=== PATIENT | male | born 1960 | race Caucasian/White ===

== ENCOUNTER 2017-06-26 19:31 | Emergency (ER) | payer OTHER ==
[~2017-06-26 19:31] MED LIST: COZAAR 50MG TAB50 MG PO; DOXAZOSIN MESYLA1 MG PO; ELIQUIS5 MG PO; FISH OIL500 MG PO; LOPRESSOR 25MG25 MG PO; LOSARTAN POTASS25 MG PO; MAGNESIUM OXID400 MG PO; MAGNESIUM OXIDE PO; METOPROLOL SUCC25 MG PO; OMEPRAZOLE40 MG PO; POLYTRIM O200 GTT/BO OPH; PREVACID15 MG PO; VITAMIN D1000 IU PO
--- NOTE | 2017-06-26 19:41 | ED INFLUENZA/URI COMPLAINT ---
History of Present Illness General Chief Complaint: General Adult Stated Complaint: "SORE THROAT, PAINFULL COUGH, SOB, 102.0 TEMP" Source: patient, old records Exam Limitations: no limitations Vital Signs & Intake/Output Vital Signs & Intake/Output Vital Signs Date Time Temp Pulse Resp B/P B/P Pulse O2 O2 Flow FiO2 Mean Ox Delivery Rate 06/27 1935 99.0 120 24 156/82 90 Allergies Coded Allergies: NO KNOWN ALLERGIES (05/17/15) Reconcile Medications Apixaban (Eliquis) 5 MG TABLET 5 MG PO 0800,1999 blood thinner Cholecalciferol (Vitamin D3) (Unknown Strength) TABLET (Unknown Dose) PO DAILY SUPPLEMENT (Reported) Doxazosin Mesylate 1 MG TAB 1 MG PO DAILY HEART (Reported) Lansoprazole (Prevacid) 15 MG ECC 1 TAB PO DAILY GI (Reported) Losartan (Cozaar) 50 MG TAB 50 MG PO DAILY heart Magnesium Oxide 400 MG TABLET 250 MG PO DAILY SUPPLEMENT (Reported) Metoprolol Tartrate (Lopressor) 25 MG TABLET 25 MG PO BID heart Polytrim (Polytrim Eye Drops) 200 GTT/BOT GTT 1 DROP OPH 4 TIMES/DAY CONJUNCITIVITS SALMON OIL/OMEGA-3 FATTY ACIDS (Fish Oil 500 MG Softgel) 500 MG-100 MG CAPSULE 500 MG PO BID SUPPLEMENT (Reported) Triage Note: per pt fever and brown sputum cough and fever since yesterday hx of lymphoma 2010, went to urgent care sent to ed. Triage Nurses Notes Reviewed? yes HPI: 56M PMH HTN, B-cell lymphoma in 2010 currently in remission presenting with 2 days of fever, diaphoresis, productive cough with brown sputum, decreased appetite, sore throat, and malaise. Denies stiff neck, sinus congestion, chest pain, abdominal pain, diarrhea, dysuria. Reports lower chest pain with deep cough. Sick contacts are both his sons, aged 13 and 20, with similar symptoms. No recent travel. Past History Travel History Traveled to [place] past 21 day No Medical History Any Pertinent Medical History? see below for history Neurological: NONE EENT: NONE Cardiovascular: hypertension Respiratory: NONE Gastrointestinal: NONE Hepatic: NONE Renal: NONE Musculoskeletal: NONE Psychiatric: NONE Endocrine: NONE Blood Disorders: NONE Cancer(s): LYMPHOMA DISABILITY REPRESENTATIVE/Reproductive: NONE History of MRSA: No History of VRE: No History of CDIFF: No Surgical History Surgical History: non-contributory Psychosocial History Who do you live with Family What is your primary language Andorran Tobacco Use: Never used Family History Hx Contributory? No Review of Systems Review of Systems Constitutional: Reports: no symptoms. EENTM: Reports: no symptoms. Respiratory: Reports: no symptoms. Cardiovascular: Reports: no symptoms. GI: Reports: no symptoms. Genitourinary: Reports: no symptoms. Musculoskeletal: Reports: no symptoms. Skin: Reports: no symptoms. Neurological/Psychological: Reports: no symptoms. Hematologic/Endocrine: Reports: no symptoms. Immunologic/Allergic: Reports: no symptoms. All Other Systems: Reviewed and Negative Physical Exam Physical Exam General Appearance: well developed/nourished, no apparent distress Head: atraumatic, normal appearance Eyes: Bilateral: normal appearance. Ears, Nose, Throat: moist mucous membrane, hearing grossly normal Neck: normal inspection, supple Respiratory: bilateral rhonchi Cardiovascular: regular rate/rhythm Gastrointestinal: soft, non-tender Back: normal inspection, normal range of motion Extremities: normal inspection, normal range of motion Neurologic/Psych: awake, alert, oriented x 3, normal mood/affect Skin: intact, normal color, warm/dry Core Measures Sepsis Present: No Sepsis Focused Exam Completed? No Progress Differential Diagnosis: influenza, meningitis, neutropenia, otitis, pneumonia, pharyngitis, sinusitis Plan of Care: Orders Procedure Date/time Status RAPID VIRAL INFLUENZA A 06/27 1939 Complete TROPONIN LEVEL 06/27 1939 Complete COMPREHENSIVE METABOLIC PANEL 06/27 1939 Complete CBC WITHOUT DIFFERENTIAL 06/27 1939 Complete B-TYPE NATRIURETIC PEP (BNP) 06/27 1939 Complete EKG 06/27 1939 Active Current Medications Sig/Mario Start time Last Medication Dose Stop Time Status Admin Azithromycin 500 MG ONCE ONE 06/26 2044 UNVr (Zithromax) 06/27 2143 Sodium Chloride 250 ML (Normal Saline 0.9%) Ceftriaxone Sodium 1,000 MG ONCE ONE 06/26 2044 UNVr (Rocephin) 06/26 2045 Sodium Chloride 1,000 ML BOLUS ONE 06/26 2029 AC (Normal Saline 0.9%) 06/26 2128 Sodium Chloride 1,000 ML BOLUS ONE 06/26 2029 AC (Normal Saline 0.9%) 06/26 2128 Laboratory Tests 06/26/171954: Anion Gap 13, Estimated GFR > 60, BUN/Creatinine Ratio 25.0, Glucose 141 H, Calcium 8.9, Total Bilirubin 1.1, AST 17, ALT 30, Alkaline Phosphatase 71, Troponin I < 0.01, Yil-I-Spkhrwlfcin Pept 412 H, Total Protein 5.9 L, Albumin 4.3, Globulin 1.6 L, Albumin/Globulin Ratio 2.7 H, CBC w Diff NO MAN DIFF REQ, RBC 4.56 L, MCV 88.3, MCH 29.6, MCHC 33.5, RDW 15.2 H, MPV 10.2, Gran % 82.7 H, Lymphocytes % 7.8 L, Monocytes % 9.2, Eosinophils % 0.2, Basophils % 0.1, Absolute Granulocytes 5.3, Absolute Lymphocytes 0.5 L, Absolute Monocytes 0.6, Absolute Eosinophils 0, Absolute Basophils 0 Microbiology 06/26 1944 NASOPHARYN: Influenza Virus A & B Rapid Smear - COMP Diagnostic Imaging: Viewed by Me: Radiology Read. Discussed w/RAD: Radiology Read. CXR Impression: PATIENT: LAUREEN KIRAN PRESENT AGE : 56 PATIENT ACCOUNT NO: [id number] : 60 LOCATION: [facility] ORDERING PHYSICIAN: Jeff Mcdonald MD SERVICE DATE: 06/26/17 EXAM TYPE: RAD - XRY-CHEST XRAY, TWO VIEWS EXAMINATION: XR CHEST CLINICAL INFORMATION: Brown sputum, bilateral rhonchi. COMPARISON: Chest radiography 09/04/2013. TECHNIQUE: 2 views of the chest were obtained. FINDINGS: The lungs are well expanded. Mild streaky opacification of the left lower lung. Bronchovascular prominence bilaterally. No pleural effusion or pneumothorax. No overt pulmonary edema. Mediastinal contours are not widened. No acute osseous abnormalities. IMPRESSION : Mild streaky left lower lung opacification, consider atelectasis or other consolidation. Bronchovascular prominence suspicious for small airways inflammation. 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 <Electronically signed in Other Vendor System> SIGNED BY: Justen Barnett MD 06/26/172039 Initial ED EKG: normal sinus rhythm, no ST T wave changes Departure Departure Disposition: HOME OR SELF CARE Condition: Stable Clinical Impression Primary Impression: Left lower lobe pneumonia Qualifiers: Pneumonia type: due to unspecified organism Qualified Code: J18.1 - Lobar pneumonia, unspecified organism Referrals: Herberth NELSON,Mateus Waggoner (PCP/Family) Additional Instructions: Follow up with your PCP. Drink plenty of water. Return to ER if new or worsening symptoms. Departure Forms: Customer Survey General Discharge Information Prescriptions: Current Visit Scripts Amoxicillin/Potassium Clav (Augmentin 875-125 Tablet) 1 TAB PO BID #14 TAB Azithromycin 1 DP PO AD #6 TAB 2 the first day followed by 1 for days 2-5
[2017-06-26 20:17] LABS: ABSOLUTE BASOPHIL COUNT 0 /CUMM (0.0-0.2); ABSOLUTE EOSINOPHIL COUNT 0 /CUMM (0.0-0.7); ABSOLUTE GRANULOCYTE CT 5.3 /CUMM (1.4-6.5); ABSOLUTE LYMPH COUNT 0.5 /CUMM (1.2-3.4); ABSOLUTE MONOCYTE COUNT 0.6 /CUMM (0.10-0.60); BASOPHIL % 0.1 % (0.0-2.0); EOSINOPHIL % 0.2 % (0-5); GRANULOCYTE % 82.7 % (42.2-75.2); HEMATOCRIT 40.3 % (42-52); MEAN CORPUSCULAR HGB 29.6 PG (27.0-31.0); MEAN CORPUSCULAR HGB CONC 33.5 G/DL (33.0-37.0); MEAN CORPUSCULAR VOLUME 88.3 FL (80.0-94.0); MEAN PLATELET VOLUME 10.2 FL (7.4-10.4); RBC DISTRIBUTION WIDTH 15.2 % (11.5-14.5); RED BLOOD CELL CT 4.56 /CUMM (4.70-6.10); WHITE BLOOD CELL COUNT 6.4 /CUMM (4.8-10.8)
--- NOTE | 2017-06-26 20:40 | RADIOLOGY REPORT ---
EXAMINATION: XR CHEST CLINICAL INFORMATION: Brown sputum, bilateral rhonchi. COMPARISON: Chest radiography 09/04/2013. TECHNIQUE: 2 views of the chest were obtained. FINDINGS: The lungs are well expanded. Mild streaky opacification of the left lower lung. Bronchovascular prominence bilaterally. No pleural effusion or pneumothorax. No overt pulmonary edema. Mediastinal contours are not widened. No acute osseous abnormalities. IMPRESSION: Mild streaky left lower lung opacification, consider atelectasis or other consolidation. Bronchovascular prominence suspicious for small airways inflammation.
[2017-06-26] MEDS ORDERED: AUGMENTIN 875-1 EACH PO (20:45)
[2017-06-26] MEDS ORDERED: AZITHROMYCIN250 M1 PO (20:45)
[2017-06-26 21:05] LABS: PLATELET COUNT 83 /CUMM (130-400)
[2017-06-26 21:24] VITALS: BP 132/80
[2017-07-14] MEDS ORDERED: LEVAQUIN750 M1 PO (21:18)
[2017-07-14] MEDS ORDERED: TYLENOL WITH C1 EACH PO (21:18)
== END 2017-06-26 21:25 ==
LOC: ERH 19:31
PROVIDERS: Internal Medicine
DX: J18.9 Pneumonia, unspecified organism (principal)
CPT/HCPCS: 71046; 87804; 87804-59; 93005; 93010; 96374; J0696